=== PATIENT | female | born 1960 | race Caucasian/White ===

== ENCOUNTER → 2024-09-27 14:55 | Outpatient (REF) | payer OTHER, SELFPAY | LOC: HWWDC 14:55 | PROVIDERS: ATTENDING PHYSICIAN Family Medicine | DX: Z12.31 Encounter for screening mammogram for malignant neoplasm of breast (principal) | CPT/HCPCS: 77063; 77067 ==

== ENCOUNTER → 2024-10-22 06:04 | Outpatient (REF) | payer OTHER, SELFPAY ==
[2024-10-22 10:03] LABS: % Basophils 0.7 % (0-2); % Eosinophils 9.3 % (0-6); % Immature Granulocytes 0.2 % (0-0.5); % Lymphocytes 22.1 % (20.5-51.1); % Monocytes 10.5 % (1.7-9.3); % Neutrophils 57.2 % (42.2-75.2); Absolute Eosinophils 0.6 10^3/uL (0-0.7); Absolute Lymphocytes 1.4 10^3/uL (1.2-3.4); Absolute Monocytes 0.6 10^3/uL (0.1-0.6); Absolute Neutrophils 3.5 10^3/uL (1.4-6.5); Hematocrit 39.3 % (37.0-47.0); Hemoglobin 12.4 g/dL (12.0-16.0); Mean Corp Hgb Conc. 31.6 g/dL (33.0-37.0); Mean Corpuscular Volume 85.6 fL (81.0-99.0); Mean Platelet Volume 10.8 fL (7.4-10.4); Nucleated Red Blood Cells % 0 %; Platelet Count 248 10^3/uL (130-400); Red Blood Cell Count 4.59 10^6/uL (4.20-5.40); White Blood Cell Count 6.1 10^3/uL (4.8-10.8)
[2024-10-22 10:17] LABS: ALT (SGPT) 25 U/L (0-35); AST (SGOT) 32 U/L (14-36); Albumin 4.4 g/dl (3.5-5.0); Alkaline Phosphatase 78 U/L (38-126); Blood Urea Nitrogen 15 mg/dl (7-17); Calcium 9.7 mg/dl (8.4-10.2); Carbon Dioxide 26 mmol/L (22-30); Chloride 104 mmol/L (98-107); Glucose 104 mg/dl (70-99); HDL Cholesterol 57 mg/dl; LDL Cholesterol, Calculated 111 mg/dl; Potassium 4.5 mmol/L (3.5-5.1); Sodium 142 mmol/L (135-145); Total Bilirubin 0.5 mg/dl (0.2-1.3); Total Cholesterol 186 mg/dl (50-199); Total Protein 7.8 g/dl (6.3-8.2); Triglyceride 94 mg/dl (10-149); Very Low Density Lipoprotein 18 mg/dl (0-30); eGFR > 60.00
[2024-10-22 10:49] LABS: Glycohemoglobin (HgbA1c) 5.8 % (4.0-5.6)
[2024-10-22 10:56] LABS: Urine Albumin Negative (Neg - Trace); Urine Bilirubin Negative (Negative); Urine Character Clear (Clear); Urine Color Yellow; Urine Glucose Negative (Negative); Urine Ketone Negative (Negative); Urine Leukocyte Negative (Negative); Urine Nitrite Negative (Negative); Urine Occult Blood Negative (Negative); Urine Urobilinogen Negative (Neg - 1+)
[2024-10-22 10:59] LABS: Free T4 0.77 ng/dl (0.78-2.19)
== END ==
LOC: HWLAB 06:04
PROVIDERS: ATTENDING PHYSICIAN Family Medicine
DX: E78.5 Hyperlipidemia, unspecified (principal); R73.02 Impaired glucose tolerance (oral); R53.81 Other malaise; R53.83 Other fatigue; R35.0 Frequency of micturition; Z13.29 Encounter for screening for other suspected endocrine disorder
CPT/HCPCS: 36415; 80053; 80061; 81003; 83036; 84439; 84443; 85025

== ENCOUNTER → 2025-03-16 11:23 | Outpatient (REF) | payer OTHER, SELFPAY ==
[2025-03-16 16:55] LABS: Erythrocyte Sed Rate 66 mm/hour (0-20)
[2025-03-16 17:25] LABS: Free T4 1.09 ng/dl (0.78-2.19)
[2025-03-17 12:11] LABS: Rheumatoid Agglutinin Positive (<10 IU)
[2025-03-17 13:20] LABS: Rheumatoid Agg. Semi-quant 2048 IU
[2025-03-19 05:48] LABS: ANA, IgG Reflex to HEp-2 None Detected (None Detected)
== END ==
LOC: HWLAB 11:23
PROVIDERS: ATTENDING PHYSICIAN Family Medicine
DX: M25.541 Pain in joints of right hand (principal); M25.542 Pain in joints of left hand; E03.9 Hypothyroidism, unspecified
CPT/HCPCS: 36415; 84439; 84443; 84481; 85652; 86038; 86140; 86430; 86431

== ENCOUNTER → 2025-03-31 13:34 | Outpatient (REF) | payer OTHER, SELFPAY ==
[2025-03-31 17:10] LABS: Vitamin D, 25-OH*** 35.7 ng/mL (30-80)
[2025-03-31 19:01] LABS: Hepatitis B Surface Antigen Negative (Negative)
[2025-03-31 19:19] LABS: Hepatitis B Surface Antibody Negative; Hepatitis C Antibody Negative (Negative)
== END ==
LOC: HWLAB 13:34
PROVIDERS: ATTENDING PHYSICIAN Internal Medicine Rheumatology; FAMILY PHYSICIAN Family Medicine
DX: E55.9 Vitamin D deficiency, unspecified (principal); M05.79 Rheumatoid arthritis with rheumatoid factor of multiple sites without organ or systems involvement; M54.2 Cervicalgia; M79.641 Pain in right hand; M79.642 Pain in left hand
CPT/HCPCS: 36415; 72040; 73100; 73130; 73560; 73565; 82306; 82784; 83521; 84155; 84165; 86200; 86334; 86430; 86706; 86803; 87340

== ENCOUNTER → 2025-04-06 09:55 | Outpatient (REF) | payer OTHER, SELFPAY ==
[2025-04-08 13:49] LABS: Quantiferon Mitogen minus NIL 1.73 IU/mL; Quantiferon NIL 0.06 IU/mL; Quantiferon Plus TB1 minus NIL 0.02 IU/mL (<=0.34); Quantiferon Plus TB2 minus NIL 0.01 IU/mL (<=0.34); Quantiferon TB Gold Plus Negative (Negative)
== END ==
LOC: HWLAB 09:55
PROVIDERS: ATTENDING PHYSICIAN Internal Medicine Rheumatology; FAMILY PHYSICIAN Family Medicine
DX: E55.9 Vitamin D deficiency, unspecified (principal); M05.79 Rheumatoid arthritis with rheumatoid factor of multiple sites without organ or systems involvement; M54.2 Cervicalgia; M79.641 Pain in right hand; M79.642 Pain in left hand
CPT/HCPCS: 36415; 86480

== ENCOUNTER → 2025-06-22 06:21 | Outpatient (REF) | payer OTHER, SELFPAY ==
[2025-06-22 09:54] LABS: Hematocrit 34.4 % (37.0-47.0); Hemoglobin 10.5 g/dL (12.0-16.0); Mean Corp Hgb Conc. 30.5 g/dL (33.0-37.0); Mean Corpuscular Volume 85.1 fL (81.0-99.0); Nucleated Red Blood Cells % 0 %; Platelet Count 344 10^3/uL (130-400); Red Cell Dist. Width 19.5 % (11.5-14.5)
[2025-06-22 10:14] LABS: Albumin 3.8 g/dl (3.5-5.0); Carbon Dioxide 23 mmol/L (22-30)
[2025-06-22 10:31] LABS: ALT (SGPT) 16 U/L (0-35); AST (SGOT) 17 U/L (14-36); Alkaline Phosphatase 78 U/L (38-126); Blood Urea Nitrogen 14 mg/dl (7-17); Calcium 9.0 mg/dl (8.4-10.2); Chloride 110 mmol/L (98-107); Glucose 91 mg/dl (70-99); Potassium 4.1 mmol/L (3.5-5.1); Sodium 140 mmol/L (135-145); Total Protein 6.6 g/dl (6.3-8.2); eGFR > 60.00
[2025-06-22 10:33] LABS: C-Reactive Protein < 5.00 mg/L (0.0-10.00)
== END ==
LOC: HWLAB 06:21
PROVIDERS: ATTENDING PHYSICIAN Internal Medicine Rheumatology; FAMILY PHYSICIAN Family Medicine
DX: E55.9 Vitamin D deficiency, unspecified (principal); M05.79 Rheumatoid arthritis with rheumatoid factor of multiple sites without organ or systems involvement; M54.2 Cervicalgia; M79.641 Pain in right hand; Z11.1 Encounter for screening for respiratory tuberculosis
CPT/HCPCS: 36415; 80053; 85025; 85652; 86140; 86480

== ENCOUNTER → 2025-07-27 09:49 | Outpatient (REF) | payer OTHER, SELFPAY ==
[2025-07-27 12:18] LABS: Hematocrit 35.0 % (37.0-47.0); Hemoglobin 11.4 g/dL (12.0-16.0); Mean Corp Hgb Conc. 32.6 g/dL (33.0-37.0); Mean Corpuscular Volume 82.9 fL (81.0-99.0); Nucleated Red Blood Cells % 0 %; Platelet Count 358 10^3/uL (130-400); Red Cell Dist. Width 20.2 % (11.5-14.5)
[2025-07-27 13:25] LABS: ALT (SGPT) 20 U/L (0-35); AST (SGOT) 25 U/L (14-36); Albumin 4.1 g/dl (3.5-5.0); Alkaline Phosphatase 69 U/L (38-126); Blood Urea Nitrogen 26 mg/dl (7-17); Calcium 9.2 mg/dl (8.4-10.2); Carbon Dioxide 20 mmol/L (22-30); Chloride 110 mmol/L (98-107); Glucose 95 mg/dl (70-99); Iron 55 ug/dl (37-170); Potassium 4.0 mmol/L (3.5-5.1); Sodium 137 mmol/L (135-145); Total Protein 7.2 g/dl (6.3-8.2); eGFR > 60.00
[2025-07-27 13:29] LABS: C-Reactive Protein < 5.00 mg/L (0.0-10.00)
[2025-07-27 13:43] LABS: Total Iron Binding Capacity 319 ug/dl (265-497)
[2025-07-27 14:00] LABS: TSH 3.78 uIU/ml (0.47-4.68)
[2025-07-27 14:05] LABS: Ferritin 45.0 ng/ml (11.1-264.0)
== END ==
LOC: HWLAB 09:49
PROVIDERS: ATTENDING PHYSICIAN Internal Medicine Rheumatology; FAMILY PHYSICIAN Family Medicine
DX: E07.9 Disorder of thyroid, unspecified (principal); M05.79 Rheumatoid arthritis with rheumatoid factor of multiple sites without organ or systems involvement; M54.2 Cervicalgia; M79.641 Pain in right hand; M79.642 Pain in left hand
CPT/HCPCS: 36415; 80053; 82728; 83540; 83550; 84439; 84443; 85025; 85652; 86140

== ENCOUNTER → 2025-11-02 08:34 | Outpatient (REF) | payer OTHER, SELFPAY | LOC: HWRAD 08:34 | PROVIDERS: ATTENDING PHYSICIAN Internal Medicine Rheumatology; FAMILY PHYSICIAN Family Medicine | DX: M05.79 Rheumatoid arthritis with rheumatoid factor of multiple sites without organ or systems involvement (principal); M54.50 Low back pain, unspecified | CPT/HCPCS: 72110; 72200 ==